=== PATIENT | female | born 1975 | race African-American/Black ===

== ENCOUNTER 2016-08-21 09:54 | Emergency (ER) | payer OTHER ==
--- NOTE | 2016-08-21 10:49 | ED Physician Documentation ---
PD HPI URI - Stated complaint Stated Complaint: THROAT PX - Chief complaint Chief Complaint: Heent - History obtained from History obtained from: Patient - History of Present Illness Timing - onset: How many days ago (5) Timing duration: Days (5) Timing details: Gradual onset, Still present, Waxing and waning Associated symptoms: Nasal congestion, Rhinorrhea, Sore throat, Dry cough Contributing factors: Travel Improves by: Rest, Medication Similar symptoms before: Diagnosis (bronchitis) Recently seen: Not recently seen - Additional information Additional information: 40-year-old female is visiting here from [place] and has A history of 2 episodes of bronchitis this year one lasting about 4 weeks and this did not resolve until she started antibiotic and the second resolve resolving shortly after she started antibiotic. She has not started an inhaler. Review of Systems Constitutional: denies: Fever Eyes: denies: Decreased vision Ears: denies: Ear pain Nose: reports: Rhinorrhea / runny nose, Congestion Throat: reports: Sore throat Cardiac: denies: Chest pain / pressure, Palpitations Respiratory: reports: Cough. denies: Dyspnea GI: denies: Nausea, Vomiting : denies: Dysuria PD PAST MEDICAL HISTORY - Past Medical History Other Past Medical History: neuroplastomatosis - Present Medications Home Medications: Ambulatory Orders Medication Instructions Recorded Confirmed Azithromycin [Zithromax] 250 mg PO DAILY #6 tablet 08/21/16 Etonogestrel/Ethinyl Estradiol 1 unit [id number] ONCE 08/21/16 08/21/16 [Nuvaring Vaginal Ring] - Allergies Allergies/Adverse Reactions: Allergies Allergy/AdvReac Type Severity Reaction Status Date / Time shellfish derived Allergy Unknown Verified 08/21/16 10:02 - Social History Does the pt smoke?: No Smoking Status: Never smoker PD ED PE NORMAL - Vitals Vital signs reviewed: Yes (hypertensive ) - General General: Alert and oriented X 3, No acute distress, Well developed/nourished - HEENT HEENT: Atraumatic, PERRL, EOMI, Other (The right TM is mildly inflamed with retained landmarks and the left is clear. Pharyns is with mild exudate. ) - Neck Neck: Supple, no meningeal sign, No bony TTP - Cardiac Cardiac: RRR, No murmur - Respiratory Respiratory: No respiratory distress, Clear bilaterally - Abdomen Abdomen: Soft, Non tender - Derm Derm: Normal color, Warm and dry, No rash - Extremities Extremities: No deformity, No edema - Neuro Neuro: No motor deficit, No sensory deficit - Psych Psych: Normal mood, Normal affect Results - Vitals Vitals: Vital Signs - 24 hr 08/21/16 10:00 Temperature 36.5 C Heart Rate 84 Respiratory 14 Rate Blood Pressure 133/91 H O2 Saturation 100 Oxygen O2 Source Room air PD MEDICAL DECISION MAKING - ED course Complexity details: reviewed results, re-evaluated patient, considered differential, d/w patient ED course: 40-year-old female with a cough and sore throat has right otitis media on examination she is administered dexamethasone 10 mg orally and we will put her on some azithromycin. Departure - Departure Disposition: 01 Home, Self Care Clinical Impression: Otitis media Qualifiers: Otitis media type: suppurative Laterality: right Chronicity: acute Recurrence: not specified as recurrent Spontaneous tympanic membrane rupture: without spontaneous rupture Qualified Code(s): H66.001 - Acute suppurative otitis media without spontaneous rupture of ear drum, right ear Condition: Stable Instructions: ED Otitis Media Acute Adult Follow-Up: Your, doctor [Other] Prescriptions: Azithromycin [Zithromax] 250 mg PO DAILY #6 tablet
[2016-08-21] MEDS ORDERED: DEXAMETHASONE 10 MG/ML VIAL PO STA (10:51)
[2016-08-21] MEDS ORDERED: DEXAMETHASONE 10 MG/ML VIAL ONE (11:04)
[2016-08-21] MEDS ORDERED: CHERRY SYRUP 10 ML UDC PO ONE (11:04)
[2016-08-21 11:32] LABS: RAPID STREP SCREEN REAGENT QC YELLOW (YELLOW)
[2016-08-21 11:46] VITALS: BP 128/65
== END 2016-08-21 11:44 | disposition home or self-care (01) ==
LOC: ED 09:54
DX: H66.001 Acute suppurative otitis media without spontaneous rupture of ear drum, right ear (principal)
CPT/HCPCS: 87070; 87430; 99283; A9270